=== PATIENT | male | born 1995 | race Caucasian/White ===

== ENCOUNTER 2016-10-13 17:20 | Emergency (ER) | payer OTHER ==
[~2016-10-13] VITALS: Ht 180.3 cm; Wt 67.1 kg
[2016-10-13 17:23] VITALS: Ht 180.3 cm; Wt 67.1 kg
[2016-10-13] MEDS ORDERED: IBUPROFEN 200 MG TAB PO STA (18:03)
[2016-10-13] MEDS ORDERED: ONDANSETRON 4MG OD TAB PO STA ×2 (18:03)
[2016-10-13] MEDS ORDERED: ACETAMINOPHEN 500 MG TAB PO STA (18:03)
--- NOTE | 2016-10-13 18:06 | EMERGENCY ROOM VISIT NOTE ---
ED Visit Note First contact with patient: 17:59 Patient evaluated with EDWARD. 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 He was not knocked out although he states he was confused for a brief period of time. Appears in mild distress without focal deficits. Tylenol and Motrin ordered for pain Given Zofran dissolvable tablets and tolerated by mouth. Patient understands to refrain from sporting activities until cleared by his trainers.
[2016-10-13] MEDS ORDERED: ONDANSETRON HOME PACK 4MG OD TAB PO ONE (18:15)
[2016-10-13] MEDS ORDERED: ASPI325T4 PO (18:24)
[2016-10-13] MEDS ORDERED: IBUP-1050 PO (18:24)
--- NOTE | 2016-10-13 18:42 | DIAGNOSTIC IMAGING REPORT ---
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 Automated exposure control was utilized for this study. Comparison: None. Findings: The paranasal sinuses and mastoid air cells are clear. The calvarium and skull base are intact. The ventricles and sulci are within normal limits. There is no mass, hematoma, midline shift, or acute infarct. Impression: No acute intracranial abnormality. Electronically signed by: Prieto Acevedo M.D. 10/13/2016 6:40 PM Dictated Date/Time: 10/13/2016 6:38 PM
--- NOTE | 2016-10-13 18:49 | EMERGENCY ROOM VISIT NOTE ---
History First contact with patient: 18:09 Chief Complaint: HEAD INJURY (MINOR) Stated Complaint: HEADACHE, NAUSEA, VOMITING History of Present Illness The patient is a 21 year old male who presents to the Emergency Room via [facility] with complaints of "headache, nausea, vomiting". 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 He states that since then he has developed a headache, nausea as well as vomiting that is intermittent. There was no identifiable loss of consciousness. He does not have any abdominal pain or other symptoms. The headache is diffuse. He does not have any blurred vision or light sensitivity. There is no dizziness. He denies any neck pain at this time. Review of Systems A complete 6-point Review of Systems was discussed with the patient, with pertinent positives and negatives listed in the History of Present Illness. All remaining Review of Systems questions can be considered negative unless otherwise specified. Past Medical/Surgical History Ear surgery as a child Family History High blood pressure Social History Smoking Status: Never Smoker Social History: Patient lives with Percy Valenzuela Tom and denies alcohol and tobacco use. Current/Historical Medications Scheduled PRN Aspirin (Aspirin), 2 TABS PO DAILY PRN for Pain Ibuprofen (Advil), 600 MG PO Q6 PRN for Pain Allergies Coded Allergies: No Known Allergies (Unverified , 10/13/16) Physical Exam Vital Signs Date Time Temp Pulse Resp B/P Pulse Ox O2 Delivery O2 Flow Rate FiO2 10/13/16 19:33 36.5 54 16 138/79 100 10/13/16 19:27 54 16 138/79 100 Room Air 10/13/16 17:23 36.5 59 16 117/69 100 Room Air 10/13/16 17:23 16 Physical Exam VITAL SIGNS - Vital signs and nursing notes were reviewed. The patient is afebrile, his pulse is slightly low at 59 bpm, his respiratory rate is 16 unlabored, his blood pressure is 117/69 and he is saturating well on room air at 100%. GENERAL -21-year-old male appearing his stated age. Patient is nontoxic in appearance. Communicates well with provider and answers questions appropriately. SKIN - Gross examination of the entire body surface demonstrates no lacerations or abrasions. HEAD - Normocephalic, Atraumatic. No Alvarado's Sign or Raccoon's Eyes. No depressed skull fractures palpable. EYES - PERRL with EOMI bilaterally. Without subconjunctival hemorrhage. Palpebral conjunctiva pink and moist with no injection. EARS - No deformities of external structures noted on gross examination bilaterally. No hemotympanum present. No tympanic perforation noted. Handle of malleus, umbo, cone of light, pars tensa/flaccid all easily visualized. NOSE - Midline and without cyanosis. No epistaxis or clear watery discharge noted. Septum midline without deviation. MOUTH/OROPHARYNX - Without perioral cyanosis. Tongue midline with equal elevation of palate bilaterally. No blood noted in the oropharynx. No tonsillar hypertrophy, erythema, or exudates noted. No dental fractures noted. NECK -no tenderness to palpation over the cervical spinous processes. No cervical paraspinal muscle tenderness noted. LUNGS - Chest wall symmetric without accessory muscle use, intercostals retractions, or central cyanosis. Normal vesicular breath sounds CTA B/L. No wheezes, rales, or rhonchi appreciated. CARDIAC - RRR with S1/S2. No murmur, rubs, or gallops appreciated. EXTREMITIES - No gross deformities noted of the extremities. +5/5 strength noted in UE/LE bilaterally. NEUROLOGIC - Cranial nerves II through XII grossly intact. Sensory intact to light touch throughout. No neurologic deficits upon exam. PSYCH - A&Ox3 and cooperates fully with examiner. Pt is very pleasant and interacts well with examiner. 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 Automated exposure control was utilized for this study. Comparison: None. Findings: The paranasal sinuses and mastoid air cells are clear. The calvarium and skull base are intact. The ventricles and sulci are within normal limits. There is no mass, hematoma, midline shift, or acute infarct. Impression: No acute intracranial abnormality. Electronically signed by: Prieto Acevedo M.D. 10/13/2016 6:40 PM Dictated Date/Time: 10/13/2016 6:38 PM Medications Administered Medications (Trade) Dose Ordered Sig/Michelle Route Start Time Stop Time Status Last Admin Dose Admin Acetaminophen (Tylenol Tab) 1,000 mg NOW STAT PO 10/13/16 18:03 10/13/16 18:05 DC 10/13/16 19:03 1,000 MG Ibuprofen (Advil Tab) 800 mg NOW STAT PO 10/13/16 18:03 10/13/16 18:05 DC 10/13/16 19:02 800 MG Ondansetron HCl (ZOFRAN ODT 4MG Home Pack) 1 homepack UD ONCE PO 10/13/16 18:15 10/13/16 18:16 DC 10/13/16 19:03 1 HOMEPACK Ondansetron HCl (Zofran Odt) 4 mg NOW STAT PO 10/13/16 18:03 10/13/16 18:05 DC 10/13/16 19:03 4 MG Ondansetron HCl (Zofran Odt) 4 mg NOW STAT PO 10/13/16 18:03 10/13/16 18:05 DC 10/13/16 19:03 4 MG Medical Decision Patient was seen and evaluated as above. After obtaining a thorough history and physical examination in conjunction with my attending, a CT of the head was ordered and the patient was medicated with 8 mg of Zofran by mouth, 800 mg of ibuprofen by mouth, and 1000mg of Tylenol by mouth. Prior to this he did vomit in the room. I did want to ensure that the patient could tolerate by mouth fluids therefore he was able to consume a glass of water without difficulty after medication. CT scan of the head with results as above. No acute intracranial findings. The patient at this time is likely experiencing a concussion. He was educated upon management. There were no neurologic deficits. No evidence of fracture to the skull or face. C-spine was cleared using Nexus criteria. The patient was instructed to not return to boxing until cleared by the hardware trainer as well as to see the concussion clinic. This was reiterated to him multiple times. He was educated upon the long-term effects of repeated concussions and not allowing them to heal. He was educated upon management today's findings. He had questions answered prior to discharge and was discharged home in good condition. In the evaluation and treatment of this patient, the following differential diagnoses were considered: Concussion, Contrecoup Injury, Brain Tumor, Depression, Encephalitis, Hypothyroidism, Meningitis, CVA, TIA, Migraine, Cluster Headache, Intracranial Abnormality, Intracranial Hemorrhage, Subdural Hematoma, Subarachnoid Hemorrhage, Hydrocephalus. Impression Primary Impression: Closed head injury Additional Impression: Concussion Departure Information Dispostion Home / Self-Care Condition GOOD Referrals No Doctor, Assigned (PCP) Patient Instructions My [facility] Additional Instructions You have been treated in the Emergency Department for a Closed Head Injury and Concussion. CT Scan of your head/brain demonstrated no acute bleeding or other abnormalities. This does not completely rule out the risk for future damage to the brain. For pain control, you can use the following [id number] medicines (if >12 yo): - Regular strength (325mg/tab) Tylenol (acetaminophen) 2 tabs every 4-6 hours as needed. Do not exceed 12 tablets in a 24 hour period. Avoid taking more than 4 grams (4000 mg) of Tylenol per day. This includes any other sources of acetaminophen you may take on a regular basis. - Regular strength (200 mg/tab) Advil (ibuprofen) 1-2 tabs every 4-6 hours as needed. Do not exceed a dose of 3200 mg per day. You should relax in a quiet, dark place for the rest of the day. Avoid any possible triggers including: cigarette smoke, caffeine, nicotine, chocolate, wine, beer, loud noises or music, or bright lights. You should schedule a follow-up appointment in 2-3 days with your Primary Care Provider or established Neurologist for further evaluation and treatment of your Headache. Please follow up with the concussion clinic for further evaluation and treatment of your injury: [facility] [phone] [place] [address] [address] You should NOT return to athletic play until reevaluated by your [employer] Professor. You should fully comply with their standard protocol regarding head injuries. Your P[employer] Minist[employer] Professor OR Primary Care Provider will have the final say in your return to athletic play. This timeframe should be AT LEAST 1 week AFTER the date of last symptoms experienced! This is ESSENTIAL to allow for adequate brain healing time and for reduced risk of re-injury. Return to the Emergency Department if your current symptoms worsen despite treatment course outlined above, or if you develop any of the following symptoms : intractable pain despite aforementioned treatment course, visual disturbances , loss of vision, unilateral weakness or facial drooping, slurring of speech, loss of coordination, or loss of consciousness. Please return to the emergency department with any new/concerning symptoms. Problem Qualifiers Primary Impression: Closed head injury Encounter type: initial encounter Qualified Codes: S09.90XA - Unspecified injury of head, initial encounter Additional Impression: Concussion Encounter type: initial encounter Loss of consciousness presence/duration: without LOC Qualified Codes: S06.0X0A - Concussion without loss of consciousness, initial encounter
[2016-10-13 19:33] VITALS: BP 138/79; PULSE 54; TEMP 36.5; O2SAT 100
== END 2016-10-13 19:33 | disposition home or self-care (01) ==
LOC: C.EDB 17:22 → C.EDD 19:33
DX: S09.90XA Unspecified injury of head, initial encounter (principal); S06.0X0A Concussion without loss of consciousness, initial encounter; W50.0XXA Accidental hit or strike by another person, initial encounter; Y93.71 Activity, boxing; Z98.890 Other specified postprocedural states; Z82.49 Family history of ischemic heart disease and other diseases of the circulatory system